=== PATIENT | female | born 1955 | race Caucasian/White ===

== ENCOUNTER 2022-03-10 08:12 | Day surgery (SDC) | payer MEDICARE, OTHER ==
[~2022-03-10] VITALS: Ht 163 cm; Wt 91.0 kg
[~2022-03-10 08:12] MED LIST: ACETAMINOPHEN325 MG PO; ALLERGY RELIEF10 M1 PO; APPLE CIDER VI500 MG PO; BIOTIN10000 MCG PO; CELEBREX **OUT100 MG PO; CERTAGEN1 EACH PO; CITALOPRAM HBR20 MG PO; FERROUS SULFAT325 MG PO; FIBER500 MG PO; LAXATIVE OF CHOICE; MIRALAX17 GM PO; NUCYNTA50 MG PO; PRAVACHOL20 MG PO; PRILOSEC20 MG PO; SINGULAIR10 MG PO; VITAMIN D3125 MC2 PO; XARELTO10 MG PO; ZANTAC150 MG PO
[2022-03-11 05:54] LABS: BASOPHIL 0.3 % (0-2); EOSINOPHIL 0.2 % (0-7); HCT 31.7 % (37.0-47.0); HGB 9.9 g/dl (12.5-16.0); LYMPHOCYTE 22.9 % (15-48); MCH 30.1 pg (25.0-31.0); MCHC 31.2 g/dL (32.0-36.0); MCV 96.4 fL (78.0-100.0); MONOCYTE 10.7 % (0-12); NEUTROPHIL 65.6 % (41-80); NRBC 0; PLT 379 K/uL (150-400); RBC 3.29 M/uL (4.20-5.40); RDW 13.3 % (11.5-14.0); WBC 11.8 K/uL (4.0-10.5)
[2022-03-11 06:15] LABS: BUN/CREAT RATIO (CALC) 14.3 RATIO; CREATININE 0.84 mg/dL (0.51-0.95); POTASSIUM 4.4 mmol/L (3.5-5.1)
[2022-03-11] MEDS ORDERED: OXYCODONE-ACET1 EAC1 PO (09:07)
[2022-03-11] MEDS ORDERED: FEOSOL325 MG PO (09:07)
[2022-03-11] MEDS ORDERED: XARELTO10 MG PO (09:07)
[2022-03-11] MEDS ORDERED: ULTRA-LIGHT RO1 EACH XX (09:07)
--- NOTE | 2022-03-11 10:54 | NUR ---
YUNG ZENDA 03/12/22 AT 10AM
== END 2022-03-11 12:10 | disposition home or self-care (01) ==
LOC: FAS 08:12 → FMS 12:14 → FAS 12:14 → FMS 03-11 01:23 → FAS 03-11 12:10
PROVIDERS: Legal Medicine
DX: M17.11 Unilateral primary osteoarthritis, right knee (principal); M21.161 Varus deformity, not elsewhere classified, right knee; E78.5 Hyperlipidemia, unspecified; K21.9 Gastro-esophageal reflux disease without esophagitis; Z87.891 Personal history of nicotine dependence; Z79.899 Other long term (current) drug therapy; Z88.6 Allergy status to analgesic agent; Z96.652 Presence of left artificial knee joint; Z90.5 Acquired absence of kidney
CPT/HCPCS: 36415; 80048; 85025; 86850; 86900; 86901; 94010; 94760; 94762; 97162; 97165; 97530-GP; C1713; C1776; J0171; J0697; J1100; J1170; J1885; J2250; J2270; J2405; J2704; J2795; J3010; J7120